=== PATIENT | male | born 1990 | race Caucasian/White ===

== ENCOUNTER 2020-04-11 18:35 | Emergency (ER) | payer OTHER, SELFPAY ==
[2020-04-11 18:40] VITALS: BP 142/82; PULSE 91; RESP 20; TEMP 37.2; O2SAT 100
--- NOTE | 2020-04-11 18:46 | ED.DENTAL ---
HPI - Dental/Oral General Chief complaint: Dental/Oral Stated complaint: tooth/jaw pain Time Seen by Provider: 04/11/20 18:46 Source: patient and RN notes reviewed History of Present Illness HPI Narrative: Patient is a 29-year-old male who presents the urgent care with complaints of left-sided facial/dental pain. Patient states that his pain started approximately 1 week ago and worsened today. Patient has poor dental hygiene with multiple fillings and caries throughout. Patient has not followed up with his dentist. Patient has not taken anything [id number] for his pain. Denies of any known fever, nausea, vomiting. No other acute complaints. No acute distress noted. Patient read the plan of care. Related Data Allergies Allergy/AdvReac Type Severity Reaction Status Date / Time Penicillins Allergy Swelling Verified 04/11/20 18:50 Review of Systems Review of Systems: Narrative: CONSTITUTIONAL: Denies fever, chills, or sweats. EYES: Denies visual changes, redness, or discharge. ENT: Reports of lower left dental pain and facial pain CARDIOVASCULAR: Denies chest pain, palpitations, or edema. RESPIRATORY: Denies cough or dyspnea. GASTROINTESTINAL: Denies abdominal pain, nausea, vomiting, or diarrhea. GENITOURINARY: Denies dysuria or hematuria. SKIN: Denies rash or itching. MUSCULOSKELETAL: Denies back pain, joint pain, or myalgia. NEUROLOGIC: Denies headache, numbness, or weakness. All other systems reviewed are negative, except as documented in HPI. PMFSH Comments At the time of my signature, I reviewed and agree with the nursing past medical, surgical, social, and family history. There is no relevant family history pertinent to the patient complaint. Exam Narrative: Exam Narrative: GENERAL: This is a well-nourished, well-developed patient, in no apparent distress. HEAD: normocephalic, atraumatic. EYES: PERRL. Sclera clear/white. Vision is grossly intact. EARS: External ears normal, auditory canals clear and without drainage, TMs normal without perforation. Hearing grossly intact. NOSE: External nose normal with no obvious nasal discharge, nares without redness, no rhinorrhea. THROAT: Mucous membranes moist, posterior pharynx clear. DENTAL: Multiple amalgam fillings noted throughout with poor dentition and caries. Erythemic edematous gums to the lower left quadrant DENTAL: NECK: Neck supple SKIN: warm, intact with no suspicious lesions or rash, good texture and turgor. NEURO: awake, alert, and oriented to person, place and time. There were no obvious focal neurologic abnormalities. EXTREMITIES: No clubbing, cyanosis, or edema. Course Vital Signs Vital signs: Vital Signs Temperature 99.0 F 04/11/20 18:40 Pulse Rate 91 04/11/20 18:40 Respiratory Rate 20 04/11/20 18:40 Blood Pressure 142/82 H 04/11/20 18:40 Pulse Oximetry 100 04/11/20 18:40 Temperature 99.0 F 04/11/20 18:40 Pulse Rate 91 04/11/20 18:40 Respiratory Rate 20 04/11/20 18:40 Blood Pressure 142/82 H 04/11/20 18:40 Pulse Oximetry 100 04/11/20 18:40 Reviewed?patient is informed that they may have pre-hypertension or hypertension based on a blood pressure reading in the department. I recommend the patient call the primary care provider listed on their discharge instructions or a physician of their choice this week to arrange follow-up for further evaluation of possible pre-hypertension or hypertension. MDM - Dental/Oral MDM Narrative Medical decision making narrative: Advised the patient to complete oral antibiotic regimen as prescribed. Make sure to eat and drink with the medication. Use ibuprofen as needed for pain. Make sure to brush and floss appropriately as well as using mouthwash after meals. Follow-up with your dentist tomorrow for further evaluation and treatment options. Differential Diagnosis Differential diagnosis: Likely gingival abscess, dental caries, toothache, dental abscess and fracture of tooth Critical C
== END 2020-04-11 19:09 | disposition home or self-care (01) ==
PROVIDERS: Emergency Provider Nurse Practitioner Family
DX: K04.7 Periapical abscess without sinus (principal)
CPT/HCPCS: 99213; G0463

== ENCOUNTER 2020-08-01 15:30 | Emergency (ER) | payer OTHER, SELFPAY ==
[2020-08-01 15:45] VITALS: BP 161/97; PULSE 90; RESP 20; TEMP 36.7; O2SAT 100
[2020-08-01 16:03] VITALS: BP 161/97; PULSE 90; RESP 20; TEMP 36.7; O2SAT 100
--- NOTE | 2020-08-01 16:04 | ED.DENTAL ---
HPI - Dental/Oral General Chief complaint: Dental/Oral Stated complaint: Dental/Oral Time Seen by Provider: 08/01/20 16:04 Source: patient Mode of arrival: ambulatory Limitations: no limitations History of Present Illness HPI Narrative: Stephan Arciniega is a 29 yo male with a PMH of dental pain who has recurrent dental pain. Right first molar is cracked in half, is swollen and he states it is difficult to chew on that side. Patient is tearful. He has been using Orajel, ibuprofen at 2:30. Prior to coming here. Pain is 6/10 Has a dentist that he has gone to for a number of years; he was just on clindamycin 2 months ago so must give him alternative antibiotic Related Data Allergies Allergy/AdvReac Type Severity Reaction Status Date / Time amoxicillin Allergy Mild Rash Verified 08/01/20 16:03 Penicillins Allergy Mild Rash Verified 08/01/20 16:03 Review of Systems Review of Systems: Narrative: CONSTITUTIONAL: Denies fever, chills, sweats. EYES: Denies visual changes, redness, discharge. ENT: Denies rhinorrhea, congestion, sore throat, otalgia. Right upper molar pain and gum swelling CARDIOVASCULAR: Denies chest pain, palpitations, edema. RESPIRATORY: Denies dyspnea, wheezing, cough GASTROINTESTINAL: Denies abdominal pain, nausea, vomiting, diarrhea. GENITOURINARY: Denies dysuria, hematuria, abnormal discharge SKIN: Denies rash or itching. NEUROLOGIC: Denies numbness, or focal weakness. PSYCHIATRIC: Denies anxiety or depression. PMFSH Past Medical History Medical History Dental abscess Social History Social History Smoking status: Never smoker Comments At time of signature, I agree with nursing past medical, surgical, social and family history. There is no relevant family history pertinent to the presenting complaint. Blood pressure is elevated this visit probably due to the degree of pain the patient is experiencing Exam Narrative: Exam Narrative: GENERAL: This is a well-nourished, well-developed patient, in mild distress. HEAD: normocephalic, atraumatic. EYES: Sclera clear/white. Vision is grossly intact. EARS: External ears normal. Hearing grossly intact. NOSE: External nose normal without nasal discharge, nares without redness, no rhinorrhea. THROAT: Very poor dentition , right upper tooth 2 is fractured and gums and gums are swollen and ar erythematous; mucous membranes moist, NECK: Neck supple, CARDIOVASCULAR: tachycardic rate and rhythm without murmurs, gallops, or rubs. RESPIRATORY: Clear to auscultation. Breath sounds equal bilaterally. No wheezes, rales, or rhonchi. GASTROINTESTINAL: Abdomen soft, SKIN: warm, intact with no suspicious lesions or rash, good texture and turgor. NEURO: awake, alert, and oriented to person, place and time. There were no obvious focal neurologic abnormalities. Steady gait EXTREMITIES: Normal range of motion. BACK: Nontender without deformity Course Course Emergency Course: Patient comes here with molar abscess and gum swelling Recent prescriptions for tooth extraction 2 months ago with clindamycin is allergic to penicillin amoxicillin so started on Bactrim dosed 3 times a day with ibuprofen and given Baggs #20 Follow-up with dentist next week Vital Signs Vital signs: Vital Signs Temperature 98.0 F 08/01/20 15:45 Pulse Rate 90 08/01/20 15:45 Respiratory Rate 20 08/01/20 15:45 Blood Pressure 161/97 H 08/01/20 15:45 Pulse Oximetry 100 08/01/20 15:45 Temperature 98.0 F 08/01/20 16:03 Pulse Rate 90 08/01/20 16:03 Respiratory Rate 20 08/01/20 16:03 Blood Pressure 161/97 H 08/01/20 16:03 Pulse Oximetry 100 08/01/20 16:03 MDM - Dental/Oral Differential Diagnosis Differential diagnosis: Likely gingival abscess, dental caries, toothache, dental abscess, fracture of tooth and other Discharge Plan Discharge Clinical Impressio
== END 2020-08-01 16:27 | disposition home or self-care (01) ==
PROVIDERS: Emergency Provider Nurse Practitioner
DX: K04.7 Periapical abscess without sinus (principal)
CPT/HCPCS: 99213; G0463

== ENCOUNTER 2024-05-24 14:57 | Emergency (ER) | payer BC, SELFPAY ==
[2024-05-24 15:06] VITALS: BP 129/70; PULSE 63; RESP 16; TEMP 36.6; O2SAT 97
--- NOTE | 2024-05-24 15:09 | ED.WOUNDLAC ---
HPI - Wound/Laceration General Chief Complaint: Wound/Laceration Stated Complaint: Puncture Wound/Left Foot Time Seen by Provider: 05/24/24 15:09 Source: patient, RN notes reviewed and old records reviewed Mode of arrival: ambulatory Limitations: no limitations History of Present Illness HPI narrative: 33 year old male who presents to [facility] care with complaints of puncture wound to his left foot which occurred about 25 minute prior to arrival. Patient states that he had slides on and he walked across the street to crab picker his little girl from school. He state that he was wearing slides and nail went through sole of slide and into his foot. No active bleeding noted, puncture wound to planter aspect of left mid foot with no active bleeding noted.Patient reports that his tetanus is not up to date. Onset (ago): minute(s) (25) Location: other (mid sole left foot puncture wound) Extremity Location: Left: foot (mid plantar aspect puncture wound) Patient tetanus UTD: No Treatments prior to arrival: other (none) Related Data Allergies Allergy/AdvReac Type Severity Reaction Status Date / Time amoxicillin Allergy Mild Rash Verified 05/24/24 15:05 Penicillins Allergy Mild Rash Verified 05/24/24 15:05 Review of Systems Review of Systems: CONSTITUTIONAL: Denies fever, chills, or sweats. CARDIOVASCULAR: Denies chest pain, palpitations, or edema. RESPIRATORY: Denies cough or dyspnea. GASTROINTESTINAL: Denies abdominal pain, nausea, vomiting SKIN: Reports mild redness and minimal swelling to plantar wound of left foot. Denies purulent drainage,positive for puncture wound to the mid plantar aspect left foot denies any tingling or numbness to his left foot, small amount of bleeding from site resolved, moves all toes without difficulty MUSCULOSKELETAL: Denies myalgia no swelling noted. NEUROLOGIC: Denies headache, numbness All systems reviewed & are unremarkable except as noted in HPI and below PMFSH Past Medical History Medical History Dental abscess Social History Social History Smoking status: Never smoker Comments At time of signature, agree with nursing past medical, surgical, social and family history. There is no relevant family history pertinent to the presenting complaint Exam Narrative: GENERAL: Well-appearing, well-nourished, and in no acute distress. HEAD: Normocephalic, atraumatic. EYES: PERRLA and EOMI. ENT: Nares clear, no rhinorrhea or epistaxis. Mucous membranes moist.TM's normal throat pink with no swelling NECK: Supple.no lymphadenopathy CHEST: Clear to auscultation. No respiratory distress.SAO2 97% on room air HEART: Regular rate and rhythm. No murmur heard. Normal peripheral pulses. ABDOMEN: Soft, nontender, nondistended, normal active bowel sounds. EXTREMITIES: Normal range of motion. No edema. SKIN: Warm, dry. Erythema, tenderness, to puncture site at mid plantar aspect of left foot, no warmth,no ecchymosis, no drainage noted. NEURO: No focal deficits. Alert and oriented x3. Course Course Emergency Course: Patient is aware of diagnosis, understands and agrees to treatment plan. Anticipatory guidance given. Patient agrees to follow-up as directed and is aware of reasons to seek care at the emergency department. Portions of this record may have been created with voice recognition software Level of Care: Express Care Visit Vital Signs Vital signs: Vital Signs Temperature 36.6 C 05/24/24 15:06 Pulse Rate 63 05/24/24 15:06 Respiratory Rate 16 05/24/24 15:06 Blood Pressure 129/70 05/24/24 15:06 Pulse Oximetry 97 05/24/24 15:06 Oxygen Delivery Room Air 05/24/24 15:06 Temperature 36.6 C 05/24/24 15:06 Pulse Rate 63 05/24/24 15:06 Respiratory Rate 16 05/24/24 15:06 Blood Pressure 129/70 05/24/24 15:06 Pulse Oximetry 97 05/24/24 15:06 Oxygen Delive
[2024-05-24] MEDS: TETANUS,DIPHTHERIA,AC PERTUSSIS ADULT (0.5 ML) BOOSTRIX IM (15:23)
== END 2024-05-24 15:42 | disposition home or self-care (01) ==
PROVIDERS: Emergency Provider Registered Nurse; PCP Internal Medicine Infectious Disease
DX: S91.332A Puncture wound without foreign body, left foot, initial encounter (principal); W45.0XXA Nail entering through skin, initial encounter; Z23 Encounter for immunization
CPT/HCPCS: 90471; 90715; 99213; G0463